=== PATIENT | female | born 1950 | race Hispanic/Latino ===

== ENCOUNTER 2019-04-08 21:10 | Inpatient (IN) | payer MEDICAID, SELFPAY ==
[~2019-04-08 21:10] MED LIST: Iopamidol 370 76% 100 ML VIAL ONE
[2019-04-08 21:32] LABS: Bacteria/HPF None Seen HPF (None Seen); Bilirubin Negative (Negative); Blood, Urine 1+ (Negative); Clarity Clear (Clear); Glucose, Urine (Dipstick) Normal (Negative); Leukocyte Negative Leu/uL (Negative); Mucous/LPF Rare LPF (<2+); Nitrite Negative (Negative); Protein, Urine (Dipstick) Negative (Neg-Trace); Squamous Epithelial 0-3 HPF (0-3); Urobilinogen Normal mg/dL (Less than 2); WBC/HPF 0-3 HPF (0-3)
[2019-04-08 21:54] LABS: #Eosinphils 0.2 thou/uL (0.0-0.7); #Lymphocytes 1.5 thou/uL (1.20-3.40); #Monocytes 0.5 thou/uL (0.11-0.59); #Neutrophils 4.6 thou/uL (1.40-6.50); %Basophils 0.1 % (0.0-1.0); %Eosinophils 2.9 % (0.0-10.0); %Lymphocytes 21.7 % (21.0-51.0); %Monocytes 7.9 % (0.0-10.0); %Neutrophils 67.4 % (42.0-75.0); Hemoglobin 10.9 g/dL (12.0-16.0); Mean Corpuscular HGB CONC 33.1 g/dL (32.0-36.0); Mean Corpuscular Volume 96.8 fL (78.0-98.0); Mean Platelet Volume 7.7 fL (7.4-10.4); Platelet Count 356 thou/uL (130-400); RBC Distribution Width 11.9 % (11.5-14.5); Red Blood Cell (RBC) Count 3.39 mill/uL (4.20-5.40); White Blood Cell (WBC) Count 6.8 thou/uL (4.8-10.8)
[2019-04-08 22:15] LABS: ALT (SGPT) 16 U/L (8-55); AST (SGOT) 21 U/L (5-34); Albumin 3.6 g/dL (3.4-4.8); Alkaline Phosphatase 122 U/L (40-110); Anion Gap 13 mmol/L (10-20); BUN (Urea Nitrogen) 8 mg/dL (9.8-20.1); Bilirubin, Total 0.3 mg/dL (0.2-1.2); Calc. Creatinine Clearance 0 mL/min (70-130); Calcium 8.5 mg/dL (7.8-10.44); Carbon Dioxide 23 mmol/L (23-31); Chloride 97 mmol/L (98-107); Estimated GFR-MDRD 80; Globulin 3.4 g/dL (2.4-3.5); Glucose 102 mg/dL (80-115); Lipase 69 U/L (8-78); Potassium 4.3 mmol/L (3.5-5.1); Sodium 129 mmol/L (136-145)
[2019-04-08] MEDS ORDERED: Ondansetron PF 4 MG/2 ML Vial ONE (23:03)
[2019-04-08] MEDS ORDERED: Acetaminophen 500 MG TAB ONE (23:03)
[2019-04-08 23:20] LABS: Troponin I Less than 0.010 ng/mL (< 0.028)
--- NOTE | 2019-04-08 23:42 | CT ---
CTA Angio Chest W WO Con 04/08/2019 10:36 PM Indication: History of Whipple procedure for a pancreatic mass in February 2019 with upper back pain and abdominal pain Technique: Multiple CTA images were obtained of the thorax with IV contrast. 3-D rendering: MIP brandie nstructed images were created and reviewed. Comparison: No relevant prior studies available. Findings: Pulmonary arteries: There are partially occlusive thrombi seen within segmental branches of the righ t middle lobe, right lower lobe, right upper lobe and left lower lobe. Heart and Aorta: Normal appearing. Mediastinum:Normal appearing. No enlarged lymph nodes. Lungs:Mild subsegmental volume loss within the lingula and both lower lobes. Pleural space: Clear. Upper Abdomen: See CT the abdomen and pelvis for further details Osseous Structures: No acute osseous abnormality. Soft tissues:Right mastectomy and right axillary lymph node dissection Other findings:None. Impression: Partially occlusive pulmonary embolus within subsegmental branches of the right middle lobe, right lo wer lobe, right upper lobe and left lower lobe. Findings called to Dr. Salcedo at 11:35 PM on April 08, 2019.
--- NOTE | 2019-04-08 23:51 | CT ---
CT OF THE ABDOMEN AND PELVIS WITH IV CONTRAST INDICATION: History of Whipple procedure for pancreatic mass on March 21, 2019 and used in [place]. The patient is having nausea and vomiting with abdominal pain COMPARISON: None FINDINGS: ABDOMEN: Lung bases: Clear Liver: No focal lesion. Gallbladder: Surgically absent Pancreas: There is an ill-defined spiculated hypodense mass measuring 4.3 x 3.9 cm seen involving the superior aspect of the pancreatic head, enveloping the celiac artery, common hepatic artery and proximal portal vein. The lesion is best seen on image 30 of series 3. There is a stent seen within t he main pancreatic duct. There are enlarged lymph nodes seen within the upper abdomen adjacent to the SMA and SMV measuring 8 mm and 10 mm in size. There is a large periportal lymph node measuring 10 mm. Adrenal glands: Normal. Spleen: Normal. Kidneys and ureters: There is slight prominence of the right renal pelvis without luis caliectasis s uspicious for an extrarenal pelvis. There is a 1.6 and a cyst involving the left mid kidney. Vasculature: There are mild vascular calcifications seen involving the visualized vasculature. Lymph nodes:As above Free fluid in abdomen:No free fluid is evident. PELVIS: Small and large bowel: There is postsurgical change of a distal gastrectomy and gastroenteric anastom osis. There are a few mildly prominent loops of small bowel seen within the upper abdomen predominantly involving afferent limb of the gastric bypass. There is a moderate amount retained stoo l within the colon. Appendix:Not definitely seen Bladder: Normal. Rectal and perirectal soft tissues:Normal. Reproductive structures: Normal. Free fluid in pelvis: Mild free fluid Lymphadenopathy pelvis: No lymphadenopathy is evident. Osseous structures: No acute osseous abnormality. No destructive osteolytic or osteoblastic lesion i s identified. There is scattered degenerative and osteoarthritic changes. Soft tissues:Normal. IMPRESSION: 1. A spiculated hypodense mass seen involving the superior humeral head is suspicious for residual ma lignancy. Correlation with prior imaging would be helpful to confirm this finding. Alternatively this could be postoperative in nature related to inflammatory stranding and focal fluid seen near the pancreatic head. Again correlation with prior imaging would be helpful. Short-term CT follow-up would also be helpful. 2. Enlarged lymph nodes of the upper abdomen may be reactive in nature related to the patient's recen t procedure or possibly related to malignant lymphadenopathy. Comparison with prior imaging again would be helpful. Follow-up imaging as necessary. 3. Slight prominence of the afferent loop of small bowel within the upper abdomen may reflect ileus o r mild enteritis. 4. Mild free fluid in the pelvis. 5. Left renal cyst
[2019-04-08] MEDS ORDERED: Enoxaparin Sodium 80 MG/0.8 ML SYRINGE ONE (23:52)
[2019-04-09] MEDS ORDERED: HYDROcodone/Acetaminophen 5/325 mg Tablet PO PRN ×3 (01:21→07:26)
[2019-04-09] MEDS ORDERED: Ondansetron ODT 4 MG TAB SL PRN (01:21)
[2019-04-09] MEDS ORDERED: Ondansetron PF 4 MG/2 ML Vial IVP PRN ×2 (01:21→07:26)
[2019-04-09] MEDS ORDERED: Acetaminophen 325 MG TAB PO PRN ×2 (01:21→07:26)
[2019-04-09] MEDS: Sodium Chloride 0.9% 1,000 ML IV SCH ×2 (02:05→16:36)
[2019-04-09 03:03] VITALS: BMI 29.9
[2019-04-09] MEDS ORDERED: traMADol HCl 50 MG TAB PO PRN ×3 (03:40→08:56)
[2019-04-09] MEDS ORDERED: HYDROcodone/Acetaminophen 7.5/325 mg Tablet PO PRN (07:26)
[2019-04-09] MEDS ORDERED: Ondansetron ODT 4 MG TAB PO PRN (07:26)
[2019-04-09] MEDS ORDERED: Benzonatate 100 MG CAP PO PRN (07:29)
[2019-04-09] MEDS ORDERED: Melatonin 3 MG TAB PO PRN (07:29)
[2019-04-09] MEDS ORDERED: Labetalol HCl 100 MG/20 ML VIAL SLOW IVP PRN (07:29)
[2019-04-09] MEDS ORDERED: diphenhydrAMINE 25 MG CAP PO PRN (07:29)
[2019-04-09] MEDS ORDERED: Docusate 100 MG CAP PO PRN (07:29)
[2019-04-09] MEDS: Famotidine/PF 20 mg/2ml Vial SLOW IVP SCH ×2 (08:48→21:18)
[2019-04-09] MEDS: Sulfameth/Trimethoprim DS 800-160mg TAB PO SCH ×2 (08:48→21:18)
[2019-04-09] MEDS: Enoxaparin Sodium 80 MG/0.8 ML SYRINGE SC SCH ×2 (11:44→23:21)
--- NOTE | 2019-04-09 13:35 | PDOC.HHP ---
Hospitalist HPI - History of Present Illness Shortness of breath History of Present Illness: 68-year-old female with past medical history of pancreatic cancer status post Whipple with excision of tumor on 03/21/2019 presents with generalized weakness and shortness of breath. Patient was recently admitted to hospital in [place] for Whipple procedure, had a four-day hospital course and was discharged in stable condition. Roughly 30 lymph nodes were removed per patient and half did have cancer per patient, Patient did have a surgical drain in postoperatively though this has been discontinued. Patient was also having urinary tract infection symptoms and was started on Bactrim which she has been compliant with. Patient presents with worsening shortness of breath, CT scan of the chest does demonstrate acute pulmonary embolism. Patient started appropriately on IV anticoagulation. Patient was CT scan of the abdomen, please see full study for details, there is fluid collection versus lesion at the head of the pancreas where patient's recent surgery was. Patient's daughter at bedside does tell me that her surgeon stated that some fluid could accumulate in this area. Oncology consultation requested for further recommendations. Hospitalist ROS - Review of Systems All other systems reviewed; all pertinent +/- noted in HPI/Subj - Medication Medications: Active Medications Generic Name Dose Route Start Last Admin Trade Name Freq PRN Reason Stop Dose Admin Enoxaparin Sodium 80 mg 04/09/19 12:00 04/09/19 11:44 Lovenox SC 80 mg 1200,2359 FRANCISCO JAVIER Administration Famotidine 20 mg 04/09/19 09:00 04/09/19 08:48 Pepcid SLOW IVP 20 mg BID FRANCISCO JAVIER Administration Sodium Chloride 1,000 mls @ 70 mls/hr 04/09/19 02:00 04/09/19 02:05 Normal Saline 0.9% IV 1,000 mls .[id number] FRANCISCO JAVIER Administration Pantoprazole Sodium 40 mg 04/09/19 09:00 04/09/19 08:48 Protonix PO 40 mg DAILY FRANCISCO JAVIER Administration Sodium Chloride 10 ml 04/09/19 09:00 04/09/19 08:49 Flush - Normal Saline IVF Not Given Q12HR FRANCISCO JAVIER Sodium Chloride 10 ml 04/09/19 01:20 04/09/19 02:06 Flush - Normal Saline IVF 10 ml PRN PRN Administration Saline Flush Trimethoprim/Sulfamethoxazole 1 tab 04/09/19 09:00 04/09/19 08:48 Bactrim Ds PO 04/12/19 09:01 1 tab BID FRANCISCO JAVIER Administration Hospitalist History - Past Medical History Source: patient, family Cardiac: denies: AFIB, CAD, CHF, HTN Pulmonary: denies: CVA/TIA/stroke, COPD, HIV/AIDS Gastrointestinal: reports: GERD Heme/Onc: reports: Cancer (pancreatic) - Past Surgical History Past Surgical History: reports: Other (Whipple on 03/21/19) - Family History Family History: reports: hypertension - Social History Smoking Status: Never smoker Alcohol: reports: None Drugs: reports: none Living Situation: With Family Activity level: independent ambulation - Exam General Appearance: NAD, awake alert Eye: PERRL ENT: normocephalic atraumatic, moist mucosa Neck: supple, symmetric, no lymphadenopathy Heart: no murmur, no gallops, no rubs Respiratory: no wheezes, no rales, no ronchi Respiratory - other findings: Deminished breath sounds at the bases Gastrointestinal: soft, non-tender, non-distended, no guarding, no rigidity Gastrointestinal - other findings: Midline lower abdominal incision well healing Extremities: no edema Skin: no lesions, no rashes Neurological: cranial nerve grossly intact, no weakness, no focal deficits Musculoskeletal: normal strength, no muscle wasting Psychiatric: normal affect, A&O x 3 Hospitalist Results - Labs Result Diagrams: 04/08/19 21:45 04/08/19 21:45 Lab results: WBC 6.8 thou/uL (4.8-10.8) 04/08/19 21:45 Hgb 10.9 g/dL (12.0-16.0) L 04/08/19 21:45 Hct 32.9 % (36.0-47.0) L 04/08/19 21:45 MCV 96.8 fL (78.0-98.0) 04/08/19 21:45 Plt Count 356 thou/uL (130-400) 04/08/19 21:45 Neutrophils % 67.4 % (42.0-75.0) 04/08/19 21:45 Sodium 129 mmol/L (136-145) L 04/08/19 21:45 Potassium 4.3 mmol/L (3.5-5.1) 04/08/19 21:45 Chloride 97 mmol/L (98-107) L 04/08/19 21:45 Carbon Dioxide 23 mmol/L (23-31) 04/08/19 21:45 BUN 8 mg/dL (9.8-20.1) L 04/08/19 21:45 Creatinine 0.73 mg/dL (0.6-1.1) 04/08/19 21:45 Glucose 102 mg/dL (80-115) 04/08/19 21:45 Calcium 8.5 mg/dL (7.8-10.44) 04/08/19 21:45 Total Bilirubin 0.3 mg/dL (0.2-1.2) 04/08/19 21:45 AST 21 U/L (5-34) 04/08/19 21:45 ALT 16 U/L (8-55) 04/08/19 21:45 Alkaline Phosphatase 122 U/L (40-110) H 04/08/19 21:45 Troponin I Less than 0.010 ng/mL (< 0.028) 04/08/19 22:48 Serum Total Protein 7.0 g/dL (6.0-8.3) 04/08/19 21:45 Albumin 3.6 g/dL (3.4-4.8) 04/08/19 21:45 Lipase 69 U/L (8-78) 04/08/19 21:45 Urine Ketones Negative mg/dL (Negative) 04/08/19 21:18 Urine Blood 1+ (Negative) A 04/08/19 21:18 Urine Nitrite Negative (Negative) 04/08/19 21:18 Ur Leukocyte Esterase Negative Ignacio/uL (Negative) 04/08/19 21:18 Urine RBC 7-10 HPF (0-3) A 04/08/19 21:18 Urine WBC 0-3 HPF (0-3) 04/08/19 21:18 Ur Squamous Epith Cells 0-3 HPF (0-3) 04/08/19 21:18 Urine Bacteria None Seen HPF (None Seen) 04/08/19 21:18 - Radiology Interpretation CT scan - abdomen Status: image reviewed by me CT scan - chest Status: image reviewed by me Hospitalist H&P A/P - Problem (1) Acute pulmonary embolism Code(s): I26.99 - OTHER PULMONARY EMBOLISM WITHOUT ACUTE COR PULMONALE Status : Acute (2) Pancreatic cancer metastasized to intra-abdominal lymph node Code(s): C25.9 - MALIGNANT NEOPLASM OF PANCREAS, UNSPECIFIED; C77.2 - SECONDARY AND UNSP MALIGNANT NEOPLASM OF INTRA-ABD NODES Status: Acute (3) Abdominal fluid collection Code(s): R18.8 - OTHER ASCITES Status: Acute (4) Shortness of breath Code(s): R06.02 - SHORTNESS OF BREATH Status: Acute (5) Cough Code(s): R05 - COUGH Status: Acute (6) GERD (gastroesophageal reflux disease) Code(s): K21.9 - GASTRO-ESOPHAGEAL REFLUX DISEASE WITHOUT ESOPHAGITIS Status: Acute (7) Hyponatremia Code(s): E87.1 - HYPO-OSMOLALITY AND HYPONATREMIA Status: Acute - Plan Plan: Plan: admit to medical unit telemetry oncology consultation, recommendations appreciated CT scan of the abdomen with remnant pancreatic CA versus fluid collection CTA of the chest with acute pulmonary embolism IV Lovenox b.i.d., full dose will need to transition to oral and coagulation prior to discharge patient has been on Bactrim for urinary tract infection, will continue additional two days as she was previously prescribed with the stop date of 04/11 WBC count normal afebrile abdominal incision is well healing IV fluids for mild hyponatremia G.I. prophylaxis Pain control continue other home medications as able blood pressure control
[2019-04-09] MEDS ORDERED: Prevnar 13-Val Conj/PF 0.5 ML SYRINGE IM ONE (21:00)
[2019-04-10 05:08] LABS: #Eosinphils 0.3 thou/uL (0.0-0.7); #Lymphocytes 1.4 thou/uL (1.20-3.40); #Monocytes 0.4 thou/uL (0.11-0.59); #Neutrophils 2.6 thou/uL (1.40-6.50); %Basophils 0.1 % (0.0-1.0); %Monocytes 9.1 % (0.0-10.0); %Neutrophils 54.8 % (42.0-75.0); Mean Corpuscular HGB CONC 33.2 g/dL (32.0-36.0); Mean Corpuscular Hemoglobin 32.4 pg (27.0-31.0); Mean Corpuscular Volume 97.8 fL (78.0-98.0); Mean Platelet Volume 8.4 fL (7.4-10.4); Platelet Count 289 thou/uL (130-400); RBC Distribution Width 11.8 % (11.5-14.5); Red Blood Cell (RBC) Count 3.07 mill/uL (4.20-5.40); White Blood Cell (WBC) Count 4.7 thou/uL (4.8-10.8)
[2019-04-10 05:29] LABS: Anion Gap 13 mmol/L (10-20); BUN (Urea Nitrogen) 7 mg/dL (9.8-20.1); Calc. Creatinine Clearance 103 mL/min (70-130); Calcium 8.5 mg/dL (7.8-10.44); Carbon Dioxide 19 mmol/L (23-31); Chloride 110 mmol/L (98-107); Estimated GFR-MDRD Greater than 90; Glucose 83 mg/dL (80-115); Potassium 4.1 mmol/L (3.5-5.1); Sodium 138 mmol/L (136-145)
[2019-04-10] MEDS: Sodium Chloride 0.9% 1,000 ML IV SCH (07:10)
--- NOTE | 2019-04-10 10:05 | CON ---
DATE OF CONSULTATION: 04/09/2019 HISTORY OF PRESENT ILLNESS: Ms. Jessi Richardson is a 68-year-old female with a distant history of stage II breast cancer as well as a recent history of adenocarcinoma of the ampulla of Vater. She actually underwent a Whipple procedure on March 21, 2019, for resection of this, but did unfortunately have 14/30 positive lymph nodes. She had her abdominal drain pulled last week, but presented to the emergency room with increasing nausea and vomiting and they were concerned that she might tear her incision and that is why the family brought her here. She denies any fevers or chills. Unfortunately in the emergency room, CT angiogram showed a pulmonary embolism. Today, she is up ambulating in the halls and feeling better. The nausea and vomiting have resolved. She denies any abdominal pain. She denies any increased abdominal bloating. Her appetite is coming back and her family states overall she has been doing better before the nausea yesterday. She does admit to being in the bed for a few weeks postoperatively and they were really having to encourage her to get up, but recently she is ambulating more. PAST MEDICAL HISTORY: 1. Stage II breast cancer thought to be in remission. 2. 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 MEDICATIONS: 1. Tylenol p.r.n. 2. DuoNeb p.r.n. 3. Tessalon Perles 100 mg p.o. q.4 hours p.r.n. cough. 4. Benadryl 25 mg p.o. q.6 hours p.r.n. 5. Colace 100 mg p.o. b.i.d. 6. Lovenox 80 mg subcu q.12 hours. 7. Pepcid 20 mg IV b.i.d. 8. Labetalol p.r.n. 9. Melatonin p.r.n. 10. Zofran 4 mg IV or p.o. q.6 hours p.r.n. 11. Protonix 40 mg p.o. daily. 12. Tramadol 50 mg p.o. q.6 hours p.r.n. 13. Bactrim DS one tablet p.o. b.i.d. ALLERGIES: NO KNOWN DRUG ALLERGIES. SOCIAL HISTORY: She denies tobacco or alcohol use. She is here with her daughters, who are quite supportive and helpful. FAMILY HISTORY: Negative and noncontributory. REVIEW OF SYSTEMS: Otherwise, 10-point review of systems negative. PHYSICAL EXAMINATION: VITAL SIGNS: Temperature 98.6, pulse 80, respirations 16, O2 saturation 97% on room air, blood pressure 106/62. GENERAL: She is walking in the halls, in no acute distress. HEENT: Extraocular muscles are intact. Sclerae are anicteric. NECK: Supple without lymphadenopathy. CARDIOVASCULAR: Regular rhythm. LUNGS: Clear to auscultation bilaterally. ABDOMEN: Hypoactive bowel sounds. Soft, nontender, nondistended. EXTREMITIES: No edema. LABORATORY DATA: White blood cell count 6.8, hemoglobin 10.9, platelets 356. Sodium 129, potassium 4.3, chloride 97, CO2 of 23, BUN 8, creatinine 0.7, total bilirubin 0.3, AST 21, ALT 16, alkaline phosphatase 122, albumin 3.6. DIAGNOSTIC DATA: CT angiogram done on this admission shows pulmonary embolism noted in the subsegmental branches of the right middle lobe, right lower lobe, and right upper lobe as well as left lower lobe. ASSESSMENT: Ms. Bowen is a 68-year-old female with; 1. Pulmonary embolisms, postsurgical. 2. History of Whipple surgery on March 21, 2019. PLAN: 1. She is on Lovenox, I would recommend transitioning her to oral anticoagulation, assuming that she has no further nausea or vomiting. 2. She can follow up with us as an outpatient. 3. I am not concerned about the postsurgical changes on her CT of the abdomen and pelvis. At this time, I think we can assume they are inflammatory. I will review that with her surgeon at [facility] when she is an outpatient. Job ID: [id number]
[2019-04-10] MEDS: Sulfameth/Trimethoprim DS 800-160mg TAB PO SCH ×2 (10:15→20:37)
[2019-04-10] MEDS: Famotidine/PF 20 mg/2ml Vial SLOW IVP SCH (10:15)
[2019-04-10] MEDS: Enoxaparin Sodium 80 MG/0.8 ML SYRINGE SC SCH (13:01)
--- NOTE | 2019-04-10 19:26 | PDOC.HOSPP ---
- Subjective Encounter Date: 04/10/19 Encounter Time: 09:30 Subjective: Patient seen and examined for PE. No CP or SOB. No new complaints. No overnight events - Objective Vital Signs & Weight: Vital Signs (12 hours) Temp Pulse Pulse Pulse Resp BP BP 04/10/19 15:52 98.8 F 77 16 04/10/19 11:37 98.9 F 84 16 04/10/19 09:39 83 88 102/64 133/77 04/10/19 07:45 97.9 F 70 16 04/10/19 07:25 BP Pulse Ox 04/10/19 15:52 106/63 95 04/10/19 11:37 101/66 96 04/10/19 09:39 04/10/19 07:45 97/59 L 94 L 04/10/19 07:25 94 L Weight Weight 168 lb 14.4 oz I&O: 04/09/19 04/10/19 04/11/19 06:59 06:59 06:59 Intake Total 2190 356 Balance 2190 356 Result Diagrams: 04/10/19 04:43 04/10/19 04:43 EKG Reviewed by me: Yes (Tele SR) Hospitalist ROS - Review of Systems Respiratory: denies: cough, dry, shortness of breath, hemoptysis, SOB with excertion, pleuritic pain, sputum, wheezing, other Cardiovascular: denies: chest pain, palpitations, orthopnea, paroxysmal noc. dyspnea, edema, light headedness, other - Medication Medications: Active Medications Generic Name Dose Route Start Last Admin Trade Name Freq PRN Reason Stop Dose Admin Enoxaparin Sodium 80 mg 04/09/19 12:00 04/10/19 13:01 Lovenox SC 80 mg 1200,2359 FRANCISCO JAVIER Administration Famotidine 20 mg 04/09/19 09:00 04/10/19 10:15 Pepcid SLOW IVP 20 mg BID FRANCISCO JAVIER Administration Sodium Chloride 1,000 mls @ 70 mls/hr 04/09/19 02:00 04/10/19 07:10 Normal Saline 0.9% IV 1,000 mls .[id number] FRANCISCO JAVIER Administration Ondansetron HCl 4 mg 04/09/19 07:26 04/09/19 15:01 Zofran IVP 4 mg Q6H PRN Administration Nausea/Vomiting Pantoprazole Sodium 40 mg 04/09/19 09:00 04/10/19 10:15 Protonix PO 40 mg DAILY FRANCISCO JAVIER Administration Sodium Chloride 10 ml 04/09/19 09:00 04/10/19 10:15 Flush - Normal Saline IVF Not Given Q12HR FRANCISCO JAVIER Sodium Chloride 10 ml 04/09/19 01:20 04/09/19 02:06 Flush - Normal Saline IVF 10 ml PRN PRN Administration Saline Flush Trimethoprim/Sulfamethoxazole 1 tab 04/09/19 09:00 04/10/19 10:15 Bactrim Ds PO 04/12/19 09:01 1 tab BID FRANCISCO JAVIER Administration - Exam General Appearance: NAD Neck: supple, no JVD Heart: RRR, no gallops Respiratory: CTAB, no rales Gastrointestinal: soft, non-tender, normal bowel sounds Extremities: no edema Hosp A/P - Plan DVT proph w/lovenox PE (POA) Hyponatremia Ampulla of Vater s/p recent Whipple h/o Breast CA GERD PLAN: Cont Lovenox - change to Eliquis tonkim Patient understands the risk associated with anticoag Check Echo Cont other meds as above
[2019-04-10] MEDS: Apixaban 5 MG TAB PO SCH (20:37)
[2019-04-11 04:48] LABS: Hemoglobin 11.5 g/dL (12.0-16.0); Platelet Count 274 thou/uL (130-400)
[2019-04-11] MEDS: Sulfameth/Trimethoprim DS 800-160mg TAB PO SCH (09:00)
[2019-04-11] MEDS: Apixaban 5 MG TAB PO SCH (09:01)
[2019-04-11 12:06] VITALS: BP 110/71; TEMP 98.6
--- NOTE | 2019-04-11 18:20 | DIS ---
DATE OF ADMISSION: 04/09/2019 DATE OF DISCHARGE: 04/11/2019 DISCHARGE DISPOSITION: Home. FOLLOWUP: 1. Follow up with primary care physician, Dr. Fernandez in 1 week. 2. Follow up with primary oncologist, Dr. Felix as scheduled. The patient was seen and examined on the day of discharge. Denies any new complaints. No chest pain, shortness of breath, or palpitations reported. BRIEF HOSPITAL COURSE: The patient is a 68-year-old female with ampulla of Vater malignancy, status post recent Whipple procedure, presented to the hospital with generalized weakness along with shortness of breath. She underwent a CT angiogram of the chest in the emergency room that was consistent with partially occlusive pulmonary embolus within the subsegmental branches of the right middle lobe, right lower lobe, right upper lobe, and left lower lobe. A CT abdomen and pelvis showed some hypodense lesion in the pancreas. She was started on Lovenox that has been transitioned to Eliquis. The patient understands the risk associated with anticoagulation. Echocardiogram showed ejection fraction 60% to 65% with mild mitral regurgitation, mild tricuspid regurgitation with left atrial dilatation. Pulmonary artery pressure was normal. Dr. Felix will discuss with the primary surgeon regarding the spiculated hypodense mass in the pancreas. She has been cleared by Oncology for discharge. FINAL DIAGNOSES: 1. Shortness of breath secondary to bilateral pulmonary embolism. 2. Pancreatic cancer, status post recent Whipple procedure. 3. Gastroesophageal reflux disease. 4. Questionable hypodense mass involving the pancreatic head. Primary care physician advised to follow. 5. Mild mitral regurgitation. 6. Mild tricuspid regurgitation. 7. History of breast cancer. 8. Hyponatremia, improved. 9. Chronic anemia. PLAN: Plan of care was discussed with the patient in detail. She stated understanding. Job ID: [id number]
--- NOTE | 2019-04-12 09:27 | PQF ---
Agnes Morejon MALIK MD [id number] CLINICAL DOCUMENTATION CLARIFICATION FORM: POST DISCHARGE Addendum to original discharge summary date: ____ Late entry note date: __ DATE:04/12/2019 ATTN: LAURA MIRANDA MD Please exercise your independent, professional judgment in responding to the clarification form. Clinical indicators are provided on the bottom of this form for your review Please check appropriate box(s): [ ] Pulmonary Embolism is due to post op complication of whipple procedure [ ] Pulmonary Embolism is NOT due to post op complication of whipple procedure [ ] Other diagnosis [x ] Unable to determine For continuity of documentation, please document condition throughout progress notes and discharge summary. Thank You. CLINICAL INDICATORS - SIGNS / SYMPTOMS / LABS 68 year old female with PMH of pancreatic cancer status post whipple with excision of tumor on 03/21/2019 presents with generalized weakness and SOB- Documented in Hospitalist H&P on 04/09 by Moy Lam Acute pulmonary embolism- Documented in Hospitalist H&P on 04/09 by Moy Lam Abdominal fluid collection-Documented in Hospitalist H&P on 04/09 by Moy Lam Pulmonary embolisms, postsurgical-Documented in consultation on 04/09 by Emily Felix [employer] PMH of pancreatic cancer status post whipple with excision of tumor on 2018-Documented in Hospitalist H&P on 04/09 by Moy Lam TREATMENT: She was started on Lovenox that has been transitioned to Eliquis.Documented in Discharge summary on 04/11 by Laura Miranda [employer] L[employer](This form is maintained as a part of the permanent medical record) 2014 [employer]. All Rights Reserved [email or web address] [not provided] [email or web address]
== END 2019-04-11 12:50 | disposition home or self-care (01) | DRG 176 ==
LOC: ERS 21:10 → 2SE 04-09 00:12
PROVIDERS: ADMIT Internal Medicine; ATTEND Internal Medicine
DX: I26.99 Other pulmonary embolism without acute cor pulmonale (principal); E87.1 Hypo-osmolality and hyponatremia; R18.8 Other ascites; N39.0 Urinary tract infection, site not specified; I08.1 Rheumatic disorders of both mitral and tricuspid valves; K21.9 Gastro-esophageal reflux disease without esophagitis; Z85.3 Personal history of malignant neoplasm of breast; D64.9 Anemia, unspecified
CPT/HCPCS: 36415; 71275; 74177; 80048; 80053; 81003; 81015; 83690; 84484; 85014; 85018; 85025; 85049; 85379; 90471; 90670; 93005; 93306; 96361; 96372; 96374; G0009; J1650; J2405; Q9967; S0028